=== PATIENT | female | born 1980 | race Caucasian/White ===

== ENCOUNTER 2020-02-28 13:24 | Inpatient (IN) | payer BC ==
[~2020-02-28] VITALS: Ht 157.5 cm; Wt 104.8 kg
--- NOTE | ~2020-02-28 | CON ---
[address] [address] CONSULTATION Name: ESTEEMORRO Hayden Room: [address] IN [facility]#: [id number] Admission: 02/28/20 Attend Phys: Teo Thibodeaux MD Discharge: Date of : 80 Report #: [id number] THIS REPORT FOR: //name// cc: Tomeka Delarosa Michelle RNP ~ THIS REPORT FOR: //name// CC: Teo Delarosa DATE OF SERVICE: 02/29/2020 REASON FOR CONSULT: Liver lesions and abdominal pain. HISTORY OF PRESENT ILLNESS: This is a 39-year-old female who is morbidly obese and reports that she was nauseous and vomiting when she started having severe right upper quadrant pain. The pain was so severe that prompted her to come to the hospital. Upon admission, the patient had imaging study suggestive of 2 lesions in the liver. Subsequently, she had an ultrasound and an MRI to further evaluate the lesion. The MRI is suspicious for hepatic adenoma with some blood around the larger lesion. The patient reports that she takes contraceptives. PAST MEDICAL HISTORY: Significant for history of gallbladder disease, status post cholecystectomy 8 years ago, kidney stones, morbid obesity, vitamin D deficiency, gastroesophageal reflux disease. The patient also has iron deficiency anemia and has been on iron replacement therapy. ALLERGIES: SIGNIFICANT TO MORPHINE. MEDICATIONS: Please refer to MAR. SOCIAL HISTORY: The patient is morbidly obese, and lives at home. FAMILY HISTORY: Noncontributory. PHYSICAL EXAMINATION: GENERAL: Reveals a morbidly obese female under no apparent distress. VITAL SIGNS: Include blood pressure 132/78, respirations 17, pulse 95, temperature 98.4. LUNGS: Clear. CARDIOVASCULAR: Regular. ABDOMEN: Large, soft, mildly tender to palpation in the right upper quadrant. NEUROLOGIC: The patient is alert and oriented x 3. LABORATORY DATA: Reveal sodium of 137, potassium 3.5, BUN is 8, creatinine is 0.8. AST is 28, ALT is 83, total bilirubin is 0.4, albumin is 2.2. WBC is 8.1 [place] [address] CONSULTATION Name: MORRO FONTANEZ Room: [address] IN [facility]#: [id number] Admission: 02/28/20 Attend Phys: Teo Thibodeaux MD Discharge: Date of : 80 Report #: [id number] with hemoglobin of 10.1 and platelet of 298. IMAGING: As discussed above. ASSESSMENT AND PLAN: The patient with a history of persistent gastroesophageal reflux disease, who had symptoms of nausea, vomiting and acute abdominal pain subsequent to her emesis. I believe that the larger adenoma may have bled and that is why we see fluid around the site. The MRI characteristic of the lesion does not fit with hepatocellular carcinoma, hemangioma, focal nodular hyperplasia. We will consider upper endoscopy to further evaluate her GERD. She will also need EUS with FNA of the lesion. I will talk to Dr. Ramirez, my colleague, to consider EUS and FNA as outpatient. We will consider upper endoscopy on Thursday. By: [id number] Ravi MD /nt
[2020-02-28 13:29] VITALS: BP 152/90
[2020-02-28] MEDS ORDERED: HYDROCHLOROTHIA25 M2 PO (13:35)
[2020-02-28] MEDS ORDERED: IRON18 M1 PO (13:35)
[2020-02-28] MEDS ORDERED: PRILOSEC OTC20 MG PO (13:35)
[2020-02-28] MEDS ORDERED: ZYRTEC10 M5 PO (13:36)
[2020-02-28] MEDS ORDERED: VITAMIN D-40010 MCG PO (13:36)
[2020-02-28 14:15] LABS: ABSOLUTE BASOPHILS 0.2 thou/uL (0.0-0.2); ABSOLUTE LYMPHOCYTES 3.9 thou/uL (0.8-5.3); ABSOLUTE MONOCYTES 1.6 thou/uL (0.0-1.2); ABSOLUTE NEUTROPHILS 14.2 thou/uL (1.6-8.1); EOSINOPHILS 0.2 %; HEMATOCRIT 38.5 % (37.0-47.0); HEMOGLOBIN 13.1 gm/dL (12.0-15.0); LYMPHOCYTES 19.4 %; MCHC 34.1 g/dL (28.0-37.0); MCV 82.1 fL (80.0-100.0); MONOCYTES 8.1 %; MPV 7.6 fl. (7.2-11.1); NUCLEATED RBCS 0 /100WBC; PLATELET COUNT* 454 thou/uL (150-400); POLYS 71.3 %; RBC 4.69 mil/uL (4.20-5.00); RDW-CV 15.1 % (10.5-14.5); WBC 19.9 thou/uL (4.0-11.0)
[2020-02-28 14:25] LABS: CALCIUM 9.2 mg/dL (8.5-10.1); CREATININE 1.3 mg/dL (0.6-1.3)
[2020-02-28 14:26] LABS: APTT 37.9 Seconds (25.0-31.3); INR 1.1; POTASSIUM 2.9 mmol/L (3.5-5.1); PROTIME 11.5 Seconds (9.20-11.50)
[2020-02-28 14:29] LABS: ALBUMIN 3.3 g/dL (3.4-5.0); TOTAL BILIRUBIN 0.9 mg/dL (<0.1-1.0); TOTAL PROTEIN 9.2 g/dL (6.4-8.2)
[2020-02-28 14:40] LABS: URINE BLOOD TRACE (Negative); URINE GLUCOSE-RANDOM NEGATIVE (Negative); URINE KETONES TRACE (Negative); URINE LEUKOCYTES-REFLEX TRACE (Negative); URINE PROTEIN 3+ (Negative); URINE SPECIFIC GRAVITY >= 1.030 (1.005-1.030)
[2020-02-28 15:02] LABS: URINE BILIRUBIN 2+ (Negative); URINE NITRITE-REFLEX POSITIVE (Negative)
[2020-02-28 15:03] LABS: ICTOTEST (BILI CONFIRMATORY) Negative (Negative); URINE CLARITY CLOUDY; URINE COLOR DARK YELLOW
[2020-02-28 15:05] LABS: HYALINE CASTS 4-10 Moderate /LPF (None Seen); SQUAMOUS >10 Many /LPF (0-3)
[2020-02-28 15:06] LABS: CRYSTALS None Seen /LPF (None Seen); MUCUS 0-3 Light strn/LPF (None Seen); URINE WBC-REFLEX >25 Many /HPF (0-5); WBC CLUMPS Few (None Seen)
[2020-02-28 15:07] LABS: URINE RBC 0-2 Rare /HPF (0-2)
[2020-02-28 19:44] VITALS: BP 160/56
[2020-02-28 20:00] VITALS: BP 147/78
[2020-02-28] MEDS ORDERED: JUNEL FE 1-201 EACH PO (20:45)
[2020-02-29] VITALS (7 sets, daily range): BP systolic 118–141; BP diastolic 65–91
--- NOTE | 2020-02-29 11:34 | EKG ---
[place] [address] ELECTROCARDIOGRAM REPORT Name: MORRO FONTANEZ Room: [address] ADM IN [facility].#: [id number] Admission: 02/28/20 Attend Phys: Teo Thibodeaux, Discharge: Date of : 80 Date of Service: 02/28/20 1359 Report #: [id number] THIS REPORT FOR: //name// [facility] Test Date: 2020-02-28 Test Time: 13:59:17 Pat Name: MORRO FONTANEZ Department: Room: [facility] Gender: F [employer]: SHAHIDA : 1980 Requested By: Genevieve Kruger Order Number: [id number] MD: Corwin Moreno Measurements Intervals [place] Rate: 125 P: 43 [place]: 121 QRS: 21 QRSD: 85 T: -74 QT: 357 QTc: 515 Interpretive Statements Sinus tachycardia Probable LVH with secondary repol abnrm Inferior infarct, age indeterminate Prolonged QT interval Baseline wander in lead(s) V5 No previous ECG available for comparison Electronically Signed On 02-29-2020 11:33:44 CDT by Corwin Moreno [email or web address] <ELECTRONICALLY SIGNED> By: Corwin Moreno MD, [facility] 02/29/20 1133 1359 1359 Corwin Moreno MD, [facility] /EPI
[2020-03-01 04:00] VITALS: BP 112/73
[2020-03-01 05:49] LABS: ABSOLUTE EOSINOPHILS 0.2 thou/uL (0.0-0.7); ABSOLUTE LYMPHOCYTES 2.1 thou/uL (0.8-5.3); ABSOLUTE MONOCYTES 0.5 thou/uL (0.0-1.2); ABSOLUTE NEUTROPHILS 5.9 thou/uL (1.6-8.1); BASOPHILS 0.4 %; HEMATOCRIT 28.6 % (37.0-47.0); LYMPHOCYTES 23.9 %; MCH 28.3 pg (26.0-34.0); MCHC 33.7 g/dL (28.0-37.0); MCV 84.1 fL (80.0-100.0); MONOCYTES 6.3 %; MPV 7.1 fl. (7.2-11.1); NUCLEATED RBCS 0 /100WBC; POLYS 67.4 %; RBC 3.39 mil/uL (4.20-5.00); RDW-CV 14.9 % (10.5-14.5); WBC 8.7 thou/uL (4.0-11.0)
[2020-03-01 05:51] LABS: HEMOGLOBIN 9.6 gm/dL (12.0-15.0); PLATELET COUNT* 261 thou/uL (150-400)
[2020-03-01 06:05] LABS: ALBUMIN 2.2 g/dL (3.4-5.0); ALKALINE PHOSPHATASE 81 U/L (46-116); ANION GAP 7 mmol/L (7-16); BUN 8 mg/dL (7-18); CALCIUM 8.1 mg/dL (8.5-10.1); CHLORIDE 104 mmol/L (98-107); CHOLESTEROL 148 mg/dL (<200); CO2 26 mmol/L (21-32); CREATININE 0.8 mg/dL (0.6-1.3); GLUCOSE 108 mg/dL (70-99); HDL CHOLESTEROL 40 mg/dL (>40); LDL CHOLESTEROL 86 mg/dL (<100); POTASSIUM 3.5 mmol/L (3.5-5.1); SERUM ASSESSMENT Clear; SGOT 28 U/L (15-37); SGPT 83 U/L (30-65); SODIUM 137 mmol/L (136-145); TC:HDL 3.7 Ratio (Not establshd); TOTAL BILIRUBIN 0.4 mg/dL (<0.1-1.0); TOTAL PROTEIN 6.7 g/dL (6.4-8.2); TRIGLYCERIDE 114 mg/dL (<150); VLDL 23 mg/dL (<40)
[2020-03-01 08:30] VITALS: BP 155/92
[2020-03-01 12:02] VITALS: BP 100/74
[2020-03-01 13:47] LABS: ABSOLUTE EOSINOPHILS 0.2 thou/uL (0.0-0.7); ABSOLUTE LYMPHOCYTES 1.8 thou/uL (0.8-5.3); ABSOLUTE MONOCYTES 0.6 thou/uL (0.0-1.2); ABSOLUTE NEUTROPHILS 5.5 thou/uL (1.6-8.1); BASOPHILS 0.6 %; EOSINOPHILS 2.5 %; HEMATOCRIT 30.6 % (37.0-47.0); HEMOGLOBIN 10.1 gm/dL (12.0-15.0); LYMPHOCYTES 21.8 %; MCH 27.6 pg (26.0-34.0); MCHC 32.9 g/dL (28.0-37.0); MCV 83.8 fL (80.0-100.0); MONOCYTES 7.4 %; MPV 7.6 fl. (7.2-11.1); NUCLEATED RBCS 0 /100WBC; PLATELET COUNT* 298 thou/uL (150-400); POLYS 67.7 %; RBC 3.65 mil/uL (4.20-5.00); RDW-CV 15.3 % (10.5-14.5); WBC 8.1 thou/uL (4.0-11.0)
[2020-03-01 16:13] VITALS: BP 132/78
[2020-03-01 20:00] VITALS: BP 151/77
[2020-03-01 23:56] VITALS: BP 115/64
[2020-03-02 04:00] VITALS: BP 137/78
[2020-03-02 07:30] VITALS: BP 152/87
[2020-03-02 10:03] VITALS: BP 152/87
[2020-03-02 12:00] VITALS: BP 133/79
[2020-03-02] MEDS ORDERED: AUGMENTIN 875-1 EACH PO (14:36)
[2020-03-02 14:48] VITALS: BP 133/79
== END 2020-03-02 15:36 | disposition home or self-care (01) | DRG 872 ==
LOC: M.ERS 13:24 → M.2W 18:20 → M.TBA-ER 18:20 → M.ERS 19:46 → M.2W 20:00
PROVIDERS: Internal Medicine; Nurse Practitioner Family; ADMIT Internal Medicine; ATTEND Internal Medicine
PROC: 0D758ZZ Dilation of Esophagus, Via Natural or Artificial Opening Endoscopic (ICD-10-PCS; principal; 2020-03-02)
DX: A41.9 Sepsis, unspecified organism (principal); N30.01 Acute cystitis with hematuria; Z68.41 Body mass index [BMI] 40.0-44.9, adult; R65.20 Severe sepsis without septic shock; I10 Essential (primary) hypertension; E78.5 Hyperlipidemia, unspecified; E66.01 Morbid (severe) obesity due to excess calories; K21.9 Gastro-esophageal reflux disease without esophagitis; E87.6 Hypokalemia; J30.2 Other seasonal allergic rhinitis; K22.2 Esophageal obstruction; D64.9 Anemia, unspecified; E55.9 Vitamin D deficiency, unspecified; Z90.49 Acquired absence of other specified parts of digestive tract; Z87.442 Personal history of urinary calculi; Z88.6 Allergy status to analgesic agent; Z82.49 Family history of ischemic heart disease and other diseases of the circulatory system